=== PATIENT | female | born 1995 | race Two or more races ===

== ENCOUNTER → 2021-09-05 | Outpatient (REF) | payer OTHER ==
[2021-09-05 16:01] LABS: APPEARANCE, URINE CLOUDY (CLEAR); BACTERIA, URINE AUTO NEGATIVE (NEGATIVE); BILIRUBIN, URINE AUTO NEGATIVE (NEGATIVE); BLOOD, URINE BLOOD 3+ (NEGATIVE); COLOR, URINE YELLOW (YELLOW); GLUCOSE, URINE (UA) AUTO NEGATIVE (NEGATIVE); KETONE, URINE AUTO NEGATIVE (NEGATIVE); LEUKOCYTE ESTERASE, URINE AUTO TRACE (NEGATIVE); MUCUS, URINE SMALL (NEGATIVE); NITRITE, URINE AUTO NEGATIVE (NEGATIVE); PROTEIN, URINE AUTO 1+ mg/dL (NEGATIVE); RBC, URINE AUTO TNTC /HPF (0-3); SPECIFIC GRAVITY URINE AUTO 1.011 (1.002-1.035); SQUAMOUS EPITHELIAL CELL UR AU 1 /HPF (0-6); UROBILINOGEN, URINE AUTO 0.2 mg/dL (0.0-2.0); WBC, URINE AUTO 8 /HPF (0-3)
== END ==
LOC: M LAB REF 12:50
PROVIDERS: ATTEND Physician Assistant
DX: R30.0 Dysuria (principal)

== ENCOUNTER 2024-01-15 08:51 | Inpatient (IN) | payer OTHER ==
[~2024-01-15] VITALS: Ht 160 cm; Wt 96.3 kg
[2024-01-15] VITALS (19 sets, daily range): BP systolic 120–192; BP diastolic 56–104; O2SAT 98
[2024-01-15] MEDS ORDERED: PRENTAB9 PO (09:19)
[2024-01-15] MEDS ORDERED: FERR325T3 PO (09:19)
[2024-01-15] MEDS ORDERED: HOME MED LIST COMPLETE! XX SCH (09:25)
[2024-01-15] MEDS ORDERED: METHYLERGONOVINE MALEATE 0.2MG/ML 1ML VIAL IM PRN (09:45)
[2024-01-15] MEDS ORDERED: OXYTOCIN DRIP 30 UNITS in IV 1 EA IV PRN (09:45)
[2024-01-15] MEDS ORDERED: LR 1,000 ML IV SCH (09:45)
[2024-01-15] MEDS ORDERED: OXYTOCIN INJ 10UNITS/ML 1ML VIAL IM PRN (09:45)
[2024-01-15] MEDS ORDERED: CARBOPROST TROMETHAMINE 250 MCG/ML AMP IM PRN (09:45)
[2024-01-15] MEDS ORDERED: TRANEXAMIC ACID INJection 1,000 MG in NS 100 ML IV PRN (09:45)
[2024-01-15] MEDS ORDERED: OXYTOCIN INJ 10UNITS/ML 1ML VIAL IV PRN (09:45)
[2024-01-15 11:08] LABS: HEMATOCRIT 39.4 % (36.0-47.0); MEAN CORPUSCULAR HEMOGLOBIN 29.1 pg (27.0-33.0); MEAN CORPUSCULAR VOLUME 88.1 fl (80.0-96.0); PLATELET COUNT, AUTOMATED 181 10^3/uL (150-450); RED BLOOD COUNT 4.47 10^6/uL (4.00-5.40); WHITE BLOOD COUNT 9.6 10^3/uL (4.0-10.0)
[2024-01-15] MEDS: OXYTOCIN DRIP 30 UNITS in IV 1 EA IV SCH (12:58)
[2024-01-15] MEDS: LR 1,000 ML IV SCH (12:58)
[2024-01-15] MEDS: LIDOCAINE 1% MDV 20ML VIAL INFIL PRN (17:36)
[2024-01-15] MEDS: OXYTOCIN DRIP 30 UNITS in IV 1 EA IV PRN ×2 (17:36→18:07)
[2024-01-15] MEDS ORDERED: MOM 30ML SUSPENSION UDC PO PRN (17:50)
[2024-01-15] MEDS ORDERED: DIBUCAINE 1% OINTMENT 30GM TOP PRN (17:50)
[2024-01-15] MEDS ORDERED: ANUSOL HC CREAM 30GM TOP PRN (17:50)
[2024-01-15] MEDS ORDERED: RHOGAM 300MCG (1500IU) INJ IM SCH (17:50)
[2024-01-15] MEDS ORDERED: ACETAMINOPHEN 500 MG TAB PO PRN (17:50)
[2024-01-15] MEDS: IBUPROFEN 800 MG TAB PO PRN (18:11)
[2024-01-15] MEDS: METHYLERGONOVINE MALEATE 0.2 MG TAB PO SCH (18:57)
[2024-01-15] MEDS: DOCUSATE SODIUM 100MG CAPSULE PO SCH (20:25)
[2024-01-15] MEDS: LACTATED RINGER'S 1000 ML IV STA (21:29)
[2024-01-16 06:00] VITALS: BP 113/70; O2SAT 97
[2024-01-16] MEDS: PRENATAL VITAMINS CHEWABLE TABLET PO SCH (08:49)
[2024-01-16] MEDS: **** TDAP VACCINE DUE PRIOR TO D/C**** MISC XX SCH (09:00)
[2024-01-16 18:00] VITALS: BP 116/63; O2SAT 98
[2024-01-17 06:00] VITALS: BP 95/52; O2SAT 97
[2024-01-17] MEDS: MEASLES,MUMPS,RUBELLA VACCINE INJ (MMR-II) SC.IMMUN ONE (07:50)
[2024-01-17] MEDS: INFLUENZA QUADRIVALENT PF VACCINE 0.5ML SYRINGE IM.IMMUN ONE (08:45)
[2024-01-17] MEDS: BOOSTRIX VACCINE (TETANUS/DIPHTH/ACEL. PERTUSSIS) 0.5ML SYR IM.IMMUN ONE (08:46)
== END 2024-01-17 13:40 | disposition home or self-care (01) | DRG 807 ==
LOC: M LDO 08:51 → M LDI 09:57 → M OBS 19:45
PROVIDERS: ADMIT Obstetrics & Gynecology; ATTEND Obstetrics & Gynecology
PROC: 10E0XZZ Delivery of Products of Conception, External Approach (ICD-10-PCS; principal; 2024-01-15)
PROC: 10907ZC Drainage of Amniotic Fluid, Therapeutic from Products of Conception, Via Natural or Artificial Opening (ICD-10-PCS; 2024-01-15)
PROC: 0HQ9XZZ Repair Perineum Skin, External Approach (ICD-10-PCS; 2024-01-15)
DX: O70.0 First degree perineal laceration during delivery (principal); Z37.0 Single live birth; Z3A.40 40 weeks gestation of pregnancy; O13.4 Gestational [pregnancy-induced] hypertension without significant proteinuria, complicating childbirth